=== PATIENT | female | born 1970 | race Caucasian/White ===

== ENCOUNTER 2018-05-16 23:33 | Emergency (ER) | payer MEDICAID ==
[~2018-05-16] VITALS: Ht 167.6 cm; Wt 86.0 kg
[2018-05-17] MEDS ORDERED: DIPHENHYDRAMINE 25MG CAPSULE PO ONE (02:15)
[2018-05-17] MEDS ORDERED: FAMOTIDINE 20MG TABLET PO ONE (02:15)
[2018-05-17] MEDS ORDERED: PREDNISONE 20MG TABLET PO ONE (02:15)
[2018-05-17] MEDS ORDERED: IBUPROFEN 600MG TABLET PO ONE (02:30)
[2018-05-17 03:03] VITALS: BP 160/82
== END 2018-05-17 03:18 | disposition home or self-care (01) ==
LOC: ER 23:33
DX: R21 Rash and other nonspecific skin eruption (principal)
CPT/HCPCS: 99284; J7512; Q0163

== ENCOUNTER 2019-06-17 14:27 | Emergency (ER) | payer MEDICAID ==
[2019-06-17 15:27] VITALS: BP 151/88
== END 2019-06-17 16:51 | disposition left against medical advice (07) ==
LOC: ER 14:27
DX: Z53.21 Procedure and treatment not carried out due to patient leaving prior to being seen by health care provider (principal)

== ENCOUNTER 2019-08-22 18:40 | Emergency (ER) | payer MEDICAID ==
[~2019-08-22] VITALS: Ht 165.1 cm; Wt 93.0 kg
[2019-08-22] MEDS ORDERED: HYDR25TA PO (18:56)
[2019-08-22] MEDS ORDERED: ACETAMINOPHEN 500MG TABLET PO ONE (22:45)
[2019-08-23 02:17] VITALS: BP 121/71
== END 2019-08-23 02:27 | disposition home or self-care (01) ==
LOC: ER 18:40
DX: R06.00 Dyspnea, unspecified (principal)
CPT/HCPCS: 71046; 99285

== ENCOUNTER 2020-07-04 10:31 | Emergency (ER) | payer MEDICAID ==
[~2020-07-04] VITALS: Ht 162.6 cm; Wt 87.0 kg
[~2020-07-04 10:31] MED LIST: HYDR25TA PO; LIDOCAINE HCL/PF 1% 2ML VIAL ONE
[2020-07-04 11:41] LABS: BG BASE EXCESS 0.6 mmol/L (-2.0-2.0); BG CARBOXYHEMOGLOBIN 0.7 % (0.5-1.5); BG DEOXYHEMOGLOBIN 3.5 % (0.0-5.0); BG HCO3 ACT 24.8 mmol/L (22.0-26.0); BG METHEMOGLOBIN 0.1 % (0.0-1.5); BG OXYGEN SATURATION 96.5 % (92.0-98.5); BG OXYHEMOGLOBIN 95.7 % (94.0-97.0); BG PCO2 38.5 mmHg (35.0-45.0); BG PH 7.427 (7.350-7.450); BG PO2 80.9 mmHg (75.0-100.0); BG SAMPLE SITE RIGHT RADIAL; BG TOTAL HEMOGLOBIN 13.1 g/dL (12.0-18.0); BG VENT MODE ROOM AIR
[2020-07-04 12:01] LABS: BASOPHILS % 0.6 % (0.0-2.0); HEMATOCRIT. 37.3 % (36.0-48.0); HEMOGLOBIN. 12.6 g/dL (12.0-16.0); LYMPHOCYTES % 30.3 % (20.0-50.0); MEAN CORPUSCULAR HEMOGLOBIN 29.7 pg (28.0-32.0); MEAN PLATELET VOLUME 8.6 fl (7.4-10.4); MONOCYTES % 9.4 % (2.0-8.0); NEUTROPHILS % 58.7 % (40.0-76.0); PLATELET 308 x1000/uL (130-400); RED BLOOD CELL COUNT 4.24 mill/uL (4.2-5.4); RED CELL DISTRIBUTION WIDTH 13.7 % (11.6-14.6)
[2020-07-04 12:04] LABS: CHLORIDE 103 mEq/L (98-107); D-DIMER 0.75 mg/L FEU (<0.50); PROTHROMBIN TIME 10.4 sec (9.6-11.0)
[2020-07-04 12:09] LABS: C REACTIVE PROTEIN QUANT 3.2 mg/L (0.0-3.0)
[2020-07-04 12:14] LABS: CREATINE KINASE 794 IU/L (26-192)
[2020-07-04 12:17] VITALS: BP 117/75
[2020-07-04] MEDS ORDERED: TOPUD MT (12:24)
== END 2020-07-04 13:33 | disposition home or self-care (01) ==
LOC: ER 10:31 → CANBEDREQ 14:49
DX: U07.1 COVID-19 (principal); I10 Essential (primary) hypertension; R79.89 Other specified abnormal findings of blood chemistry; R74.02 Elevation of levels of lactic acid dehydrogenase [LDH]
CPT/HCPCS: 36415; 36600; 71045; 80053; 82375; 82550; 82805; 83605; 83615; 84145; 84484; 85025; 85379; 85384; 85610; 86140; 87040; 93005; 99285; J3490